=== PATIENT | male | born 1960 | race Caucasian/White ===

== ENCOUNTER 2020-09-20 18:48 | Emergency (ER) | payer OTHER ==
[~2020-09-20] VITALS: Ht 185.4 cm; Wt 130.6 kg
[~2020-09-20 18:48] MED LIST: CRESTOR20 MG PO; IBUPROFEN 800800 M1 PO; LANTUS; NORCO 5-325 TA1 EACH PO; NOVOLOG100 UNIT/1 SQ; TAMSULOSIN HCL0.4 M1 PO; ZOFRAN 4 MG ORAL4 MG PO
[2020-09-20] MEDS ORDERED: METFORMIN HCL500 M3 PO (19:17)
[2020-09-20] MEDS ORDERED: TRULICITY0.75 MG/0. SUBQ (19:18)
[2020-09-20] MEDS ORDERED: FARXIGA5 MG PO (19:20)
[2020-09-20] MEDS ORDERED: MOBIC7.5 MG PO (19:21)
[2020-09-20] MEDS ORDERED: COZAAR 25 MG TA25 M1 PO (19:21)
[2020-09-20] MEDS ORDERED: TRESIBA FL100 UNIT/1 SUBQ (19:21)
[2020-09-20 21:11] VITALS: BP 148/83
== END 2020-09-20 21:10 | disposition home or self-care (01) ==
LOC: M.ERS 18:48
DX: M54.6 Pain in thoracic spine (principal); M54.2 Cervicalgia; E11.9 Type 2 diabetes mellitus without complications; E78.00 Pure hypercholesterolemia, unspecified; Z90.49 Acquired absence of other specified parts of digestive tract; Z88.1 Allergy status to other antibiotic agents; Z79.4 Long term (current) use of insulin; Z87.442 Personal history of urinary calculi; Z91.040 Latex allergy status; V89.2XXA Person injured in unspecified motor-vehicle accident, traffic, initial encounter; Y93.89 Activity, other specified; Y92.89 Other specified places as the place of occurrence of the external cause; Y99.8 Other external cause status